=== PATIENT | female | born 1950 | race Caucasian/White ===

== ENCOUNTER 2023-02-14 13:57 | Outpatient (CLI) | payer OTHER ==
[2023-02-14 14:59] LABS: #Basophils 0.1 10x3/uL (0.0-0.2); #Eosinphils 0.1 10x3/uL (0.0-0.5); #Monocytes 0.7 10x3/uL (0.0-1.1); #Neutrophils 5.8 10x3/uL (1.5-8.4); %Basophils 0.7 % (0.0-2.0); %Eosinophils 1.3 % (0.0-6.0); %Lymphocytes 28.2 % (18.0-47.0); %Monocytes 7.7 % (0.0-10.0); %Neutrophils 61.8 % (40.0-75.0); Hematocrit 42.8 % (34.9-44.5); Hemoglobin 13.9 g/dL (12.0-15.5); Mean Corpuscular HGB CONC 32.5 g/dL (32.0-36.0); Mean Corpuscular Hemoglobin 28.8 pg (27.0-33.0); Mean Corpuscular Volume 88.8 fl (81.6-98.3); Mean Platelet Volume 9.7 fl (7.4-10.4); Platelet Count 257 10x3/uL (150-450); RBC Distribution Width 12.3 % (11.5-14.5); Red Blood Cell (RBC) Count 4.82 10x6/uL (3.90-5.03); White Blood Cell (WBC) Count 9.4 10x3/uL (3.5-10.5)
[2023-02-14 15:15] LABS: Anion Gap 18 mmol/L (10-20); BUN (Urea Nitrogen) 19 mg/dL (9.8-20.1); Calc. Creatinine Clearance 0 mL/min (70-130); Calcium 8.8 mg/dL (7.8-10.44); Carbon Dioxide 22 mmol/L (23-31); Chloride 102 mmol/L (98-107); Estimated GFR 76; Glucose 117 mg/dL (83-110); Potassium 4.4 mmol/L (3.5-5.1); Sodium 138 mmol/L (136-145)
== END 2023-02-14 13:58 | disposition home or self-care (01) ==
LOC: LABBT 13:57
PROVIDERS: ATTEND Orthopaedic Surgery
DX: Z01.818 Encounter for other preprocedural examination (principal); S52.502A Unspecified fracture of the lower end of left radius, initial encounter for closed fracture
CPT/HCPCS: 80048; 85025; 93005; 93010

== ENCOUNTER 2023-02-15 06:56 | Day surgery (SDC) | payer OTHER ==
[2023-02-14 14:23] VITALS: BMI 27.5
[2023-02-15] MEDS ORDERED: Midazolam HCl 2 mg/2 ml Vial ONE (08:13)
[2023-02-15] MEDS ORDERED: fentaNYL 50 mcg/mL 1 mL Vial ONE (08:13)
[2023-02-15] MEDS ORDERED: Clindamycin/D5W 600 mg/50 ml Premix Bag ONE (09:57)
[2023-02-15] MEDS ORDERED: Ropivacaine 0.2% 550 ML 550 ML NERVE BLCK SCH (10:00)
[2023-02-15] MEDS ORDERED: Ropivacaine 0.5% HCl/PF (150 MG/30 ML VIAL) ONE (10:00)
[2023-02-15] MEDS ORDERED: Promethazine HCl 25 MG/ML VIAL IM PRN (10:00)
[2023-02-15] MEDS ORDERED: HYDROcodone/Acetaminophen 10/325 mg Tablet PO PRN ×2 (10:00)
[2023-02-15] MEDS ORDERED: traMADol HCl 50 MG TAB PO PRN ×2 (10:00)
[2023-02-15] MEDS ORDERED: Ondansetron PF 4 MG/2 ML Vial IVP PRN (10:00)
[2023-02-15] MEDS ORDERED: Ropivacaine 0.2% HCl/PF 20 ML ONE (10:00)
[2023-02-15] MEDS ORDERED: Zolpidem Tartrate 5 MG TAB PO PRN (10:00)
[2023-02-15] MEDS ORDERED: fentaNYL PF 100 MCG/2 ML SYRINGE ONE (10:05)
[2023-02-15] MEDS ORDERED: Famotidine/PF 20 mg/2ml Vial ONE (10:05)
[2023-02-15] MEDS ORDERED: Bupivacaine PF 0.5% 30 ML VIAL ONE (10:13)
[2023-02-15] MEDS ORDERED: EPINEPHrine 1 MG/ML AMP ONE (10:13)
[2023-02-15] MEDS ORDERED: PHENYLEPHRINE-NS 100 MCG/ML 10 ML SYRINGE ONE (10:26)
[2023-02-15] MEDS ORDERED: Dexamethasone 20 MG/5 ML VIAL ONE (10:26)
[2023-02-15] MEDS ORDERED: Ondansetron PF 4 MG/2 ML Vial ONE (10:26)
[2023-02-15] MEDS ORDERED: ePHEDrine Sulfate 50 MG/10 ML VIAL ONE (10:26)
[2023-02-15] MEDS ORDERED: PROPOFOL 200 MG/20 ML VIAL ONE (10:26)
[2023-02-15] MEDS ORDERED: Lidocaine 1% PF 5 ML VIAL ONE (10:26)
== END 2023-02-15 13:10 | disposition home or self-care (01) ==
LOC: SDC 06:56
PROVIDERS: ATTEND Orthopaedic Surgery
PROC: 0PSJ04Z Reposition Left Radius with Internal Fixation Device, Open Approach (ICD-10-PCS; principal; 2023-02-15)
DX: S52.572A Other intraarticular fracture of lower end of left radius, initial encounter for closed fracture (principal); E11.9 Type 2 diabetes mellitus without complications; I10 Essential (primary) hypertension; Z79.899 Other long term (current) drug therapy; Z79.84 Long term (current) use of oral hypoglycemic drugs; Z88.0 Allergy status to penicillin; W18.30XA Fall on same level, unspecified, initial encounter
CPT/HCPCS: 25608; 73110; A4306; C1713 ×5; J3010; J0171; J1100; J2250; J2405; J2704; J2795; J3490; S0020; S0028